=== PATIENT | male | born 1980 | race Caucasian/White ===

== ENCOUNTER 2016-11-27 09:07 | Emergency (ER) | payer BC ==
[~2016-11-27] VITALS: Wt 89.0 kg
[2016-11-27] MEDS ORDERED: HYDROCODONE/APAP (5/325) TAB PO ONE (09:30)
[2016-11-27] MEDS ORDERED: DIPHTH/TET/ACEL PERTUSS (ADULT) 0.5 ML VIAL IM* ONE (09:30)
--- NOTE | 2016-11-27 09:43 | ERD ---
ER Documentation Chief Complaint Date/Time DATE: 11/27/16 TIME: 09:40 Chief Complaint R SHOULDER INJURY AT WORK HPI Patient is a 36-year-old male with no past medical history who presents to the ED with right shoulder right clavicle pain after sustaining an injury at work. Patient states that a 2 x 4 wooden beam fell onto his shoulder. He stated that he had shortness of breath at this time. However he does not have shortness of breath or difficulty breathing or cough or chest pain. He states that he has pain with full extension and elevation of his right shoulder. He states that the pain is on the anterior side of the shoulder and clavicle. Denies hitting his head, passing out or losing consciousness. Denies neck pain or neck stiffness or headache. Denies abdominal pain, nausea, vomiting. Patient is not up-to-date with his tetanus vaccine. No other complaints. ROS All systems reviewed and are negative except as per history of present illness. Medications Home Meds Active Scripts Naproxen* (Naprosyn*) 500 Mg Tablet, 500 MG PO BID for 14 Days, TAB Prov:JESSE VIVAR PA-C 11/27/16 Bacitracin* (Bacitracin Oint (UD)*) 1 Applic Oint, 1 APPLIC TOP ONCE for 14 Days , PKT APPLY TO Prov:JESSE VIVAR PA-C 11/27/16 Discontinued Scripts Albuterol Sulfate* (Albuterol Sulfate* Neb) 0.083%-3 Ml Neb, 2.5 MG NEB Q4 Y for SHORTNESS OF BREATH, #30 EA Prov:JESSE VIVAR PA-C 11/27/16 PMhx/Soc Medical and Surgical Hx: pt denies Medical Hx, pt denies Surgical Hx History of Surgery: No Anesthesia Reaction: No Hx Neurological Disorder: No Hx Respiratory Disorders: No Hx Cardiac Disorders: No Hx Psychiatric Problems: No Hx Miscellaneous Medical Probl: No Hx Alcohol Use: No Hx Substance Use: No Hx Tobacco Use: No Smoking Status: Never smoker Physical Exam Vitals Vital Signs Date Time Temp Pulse Resp B/P Pulse Ox O2 Delivery O2 Flow Rate FiO2 11/27/16 09:09 98.0 78 18 179/99 99 Physical Exam GENERAL: Well-developed, well-nourished male. Appears in no acute distress. HEAD: Normocephalic, atraumatic. EYES: Pupils are equally reactive bilaterally. EOMs grossly intact. No conjunctival erythema. ENT: Moist mucous membranes. No uvula deviation. No kissing tonsils. No exudates. NECK: Supple. No lymphadenopathy or thyromegaly. No meningismus. negative kernig. negative brudinski. LUNG: Clear to auscultation bilaterally. No rhonchi, wheezing, rales or coarse breath sounds. HEART: Regular rate and rhythm. No murmurs, rubs or gallops. Extremities: Equal pulses bilaterally. No peripheral clubbing, cyanosis or edema. No unilateral leg swelling. Right distal clavicle is ecchymosis and tender. Multiple superficial abrasions on the anterior right chest. No step- offs or deformities in shoulder. Radius, ulnar and median nerve intact. No wrist drop. No scaphoid tenderness. No pain below the right shoulder. Pain with full elevation of the right shoulder. NEUROLOGIC: Alert and oriented. Moving all four extremities. 5/5 strength in all extremities. Normal speech. Steady gait. SKIN: Normal color. Warm and dry. No rashes or lesions. Capillary refill < 2 seconds Results 24 hrs Current Medications Medications (Trade) Dose Ordered Sig/Demario Route PRN Reason Start Time Stop Time Status Last Admin Dose Admin Diphtheria/ Tetanus/Acell Pertussis (Adacel) 0.5 ml ONCE ONCE IM* 11/27/16 09:30 11/27/16 09:31 DC 11/27/16 09:41 Acetaminophen/ Hydrocodone Bitart ([place] (5/325)) 1 tab ONCE ONCE PO 11/27/16 09:30 11/27/16 09:31 DC 11/27/16 09:40 Procedures/MDM ER COURSE: I kept the patient and/or family informed of laboratory and diagnostic imaging results throughout the emergency room course. IMAGING STUDIES [place] [id number] Radiology Main Line: [phone] DIAGNOSTIC IMAGING REPORT Patient: LEANDRA ROCHA : 1980 Age: 36 Sex: M MR #: [id number] DOS: 11/27/16927 Ordering MD: JESSE VIVAR PA-C Location: [facility] Room/Bed: PROCEDURE: XR clavicle CLINICAL INDICATION: Right clavicular pain after trauma TECHNIQUE: Two views of the right clavicle are available for review. COMPARISON: None available FINDINGS: There is normal mineralization and alignment of the bones of the right clavicle. There is no evidence of acute fracture or dislocation. The right acromioclavicular joint and glenohumeral joint within normal limits. The visualized portions of the right upper chest are within normal limits. IMPRESSION: 1. Unremarkable right clavicle series without evidence of fracture or dislocation. RPTAT: KK .Juan Antonio Gomez MD, MD Date Time Electronically viewed and signed by .Juan Antonio Gomez MD, MD on 2016 10:41 .B/ CC: JESSE VIVAR PA-C [place] [address] Radiology Main Line: [phone] DIAGNOSTIC IMAGING REPORT Patient: LEANDRA ROCHA : 1980 Age: 36 Sex: M MR #: [id number] DOS: 11/27/16 0928 Ordering MD: JESSE VIVAR PA-C Location: [facility] Room/Bed: PROCEDURE: XR Shoulder. CLINICAL INDICATION: Right shoulder pain after trauma TECHNIQUE: 3 views of the right shoulder are available for review. COMPARISON: None available FINDINGS: There is normal mineralization and alignment of the bones of the right shoulder. No acute fracture or dislocation is identified. The glenohumeral joint is within normal limits. The acromioclavicular joint is intact. The visualized portions of the right chest wall are grossly unremarkable. The soft tissues are within normal limits. IMPRESSION: 1. Unremarkable right shoulder series. RPTAT: KK .Juan Antonio Gomez MD, MD Date Time Electronically viewed and signed by .Juan Antonio Gomez MD, MD on 2016 10:40 .B/ CC: JESSE VIVAR PA-C [place] [address] Radiology Main Line: [phone] DIAGNOSTIC IMAGING REPORT Patient: LEANDRA ROCHA : 1980 Age: 36 Sex: M MR #: [id number] DOS: 11/27/16 0000 Ordering MD: JESSE VIVAR PA-C Location: [facility] Room/Bed: AMENDMENT: 11/27/2016 10:43:02 AM Juan Antonio Gomez M.D Addendum: Comparison should read: None available. PROCEDURE: Chest Radiograph. CLINICAL INDICATION: Chest and shoulder pain after trauma. TECHNIQUE: Single frontal chest radiograph. COMPARISON: FINDINGS: The cardiomediastinal silhouette is within normal limits. No infiltrate or effusion is seen. The bones are intact. IMPRESSION: 1. Unremarkable chest radiograph. RPTAT: KK .Juan Antonio Gomez MD, MD Date Time Electronically viewed and signed by .Juan Antonio Gomez MD, MD on 2016 10:43 .B/ CC: JESSE VIVAR PA-C MEDICATIONS [place]. Tetanus vaccine. Tolerated well with no adverse reaction. PROCEDURES Wound care, normal saline irrigation to superficial anterior chest wound MEDICAL DECISION MAKING: This is a 36-year-old male who presents with right shoulder pain, right clavicle pain 1 day after sustaining an injury at work where a wooden beam fell onto his chest.. Vital signs were reviewed. Patient is afebrile. Patient is not hypoxic. Patient's x-rays of by radiologist is unremarkable for fracture dislocation. Patient has shoulder and clavicle pain of unknown etiology likely contusion. Patient has multiple superficial abrasion do not need suture placement. Low suspicion for dislocation, fracture, septic joint, compartment syndrome, osteomyelitis, cellulitis, avascular necrosis, neurological injury, vascular injury, tendon laceration. Low suspicion for ACS , PE, AAA, dissection, DVT DISCHARGE: At this time, patient is stable for discharge and outpatient management with no new complaints during the ER course. Patient was sent home with nakia Negrete and a copy of all imaging reports. Patient will be discharged home with instructions to recheck for new or worsening symptoms such as fever, nausea , weakness, LOC and to follow up with primary care in the next 1-2 days. Patient was advised to return to the ER for any new or worsening symptoms. Plan was discussed and patient and/or family understands and agrees. Home instructions were given. Departure Diagnosis: Primary Impression: Abrasion Additional Impression: Shoulder pain Laterality: right Chronicity: acute Qualified Code: M25.511 - Acute pain of right shoulder Condition: Stable JESSE VIVAR PA-C November 27, 2016 09:43
[2016-11-27] MEDS ORDERED: ALBU2.5V3 NEB (10:21)
--- NOTE | 2016-11-27 10:40 | RADRPT ---
PROCEDURE: XR Shoulder. CLINICAL INDICATION: Right shoulder pain after trauma TECHNIQUE: 3 views of the right shoulder are available for review. COMPARISON: None available FINDINGS: There is normal mineralization and alignment of the bones of the right shoulder. No acute fracture or dislocation is identified. The glenohumeral joint is within normal limits. The acromioclavicular joint is intact. The visualized portions of the right chest wall are grossly unremarkable. The sof t tissues are within normal limits. IMPRESSION: 1. Unremarkable right shoulder series. RPTAT: KK .Juan Antonio Gomez MD, Date Time Electronically viewed and signed by .Juan Antonio Gomez MD, MD on 11/27/2016 10:40 .B/
--- NOTE | 2016-11-27 10:41 | RADRPT ---
PROCEDURE: XR clavicle CLINICAL INDICATION: Right clavicular pain after trauma TECHNIQUE: Two views of the right clavicle are available for review. COMPARISON: None available FINDINGS: There is normal mineralization and alignment of the bones of the right clavicle. There is no eviden ce of acute fracture or dislocation. The right acromioclavicular joint and glenohumeral joint withi n normal limits. The visualized portions of the right upper chest are within normal limits. IMPRESSION: 1. Unremarkable right clavicle series without evidence of fracture or dislocation. RPTAT: KK .Juan Antonio Gomez MD, Date Time Electronically viewed and signed by .Juan Antonio Gomez MD, on 11/27/2016 10:41 .B/
--- NOTE | 2016-11-27 10:42 | RADRPT ---
AMENDMENT: 11/27/2016 10:43:02 AM Juan Antonio Gomez M.D Addendum: Comparison should read: None available. PROCEDURE: Chest Radiograph. CLINICAL INDICATION: Chest and shoulder pain after trauma. TECHNIQUE: Single frontal chest radiograph. COMPARISON: FINDINGS: The cardiomediastinal silhouette is within normal limits. No infiltrate or effusion is seen. Th e bones are intact. IMPRESSION: 1. Unremarkable chest radiograph. RPTAT: KK .Juan Antonio Gomez MD, MD Date Time Electronically viewed and signed by .Juan Antonio Gomez MD, on 11/27/2016 10:43 .B/
[2016-11-27] MEDS ORDERED: TRAM50TA2 PO (10:51)
[2016-11-27] MEDS ORDERED: BACITUD TOP (10:53)
[2016-11-27] MEDS ORDERED: NAPR-260 PO (10:56)
== END 2016-11-27 11:13 | disposition home or self-care (01) ==
LOC: FTE 09:07
DX: S20.311A Abrasion of right front wall of thorax, initial encounter (principal); R07.9 Chest pain, unspecified; W20.8XXA Other cause of strike by thrown, projected or falling object, initial encounter; Y92.69 Other specified industrial and construction area as the place of occurrence of the external cause; Z23 Encounter for immunization
CPT/HCPCS: 71010; 73000; 90471; 90715